=== PATIENT | female | born 1970 | race Caucasian/White ===

== ENCOUNTER 2016-09-03 17:10 | Observation (INO) | payer OTHER, MEDICAID ==
[2016-09-03] VITALS (9 sets, daily range): BP systolic 98–145; BP diastolic 51–86; PULSE 60–78; RESP 16–20; TEMP 97.7–98.1; O2SAT 98–100
[~2016-09-03] VITALS: Ht 157.5 cm; Wt 99.8 kg
[2016-09-03 17:35] LABS: BLOOD, URINE LARGE (NEG); GLUCOSE,URINE NEG (NEG); KETONE, URINE NEG (NEG); NITRITE,URINE NEG (NEG); PH, URINE 6.5 (5.0-8.5)
[2016-09-03 17:42] LABS: METHOD OF COLLECTION CLEAN CATCH; URINE COLOR YELLOW (YELLW/STRAW)
[2016-09-03 17:43] LABS: SQUAMOUS EPITHELIAL CELL URINE > 8 /hpf (0-5); WBC, URINE INNUM /hpf (0-5)
[2016-09-03 17:44] LABS: BACTERIA, URINE MOD /hpf; COMMENT (UR) CULTURE INDICATED; CULTURE IF INDICATED CULTURE INDICATED
[2016-09-03] MEDS ORDERED: SODIUM CHLOR 0.9% 1000 ML INJ 1,000 ML IV SCH ×2 (17:54→23:00)
[2016-09-03] MEDS ORDERED: KETOROLAC TROMETHAMINE 30 MG/ML (IVP) VIAL IVP ONE (18:00)
[2016-09-03] MEDS ORDERED: SODIUM CHLORIDE 0.9% FLUSH 5 ML FLUSH IVF PRN ×2 (18:00→23:00)
[2016-09-03 18:11] LABS: AUTOMATED NEUTROPHIL # 2.6 TH/MM3 (1.8-7.7); BASOPHIL % 0.6 % (0.0-2.0); EOSINOPHIL # 0.2 TH/MM3 (0-0.4); EOSINOPHIL % 3.1 % (0.0-4.0); HEMO FLAGS DIFF FINAL; LYMPH % 42.8 % (9.0-44.0); LYMPHOCYTE # 2.5 TH/MM3 (1.0-4.8); MEAN CELL VOLUME 79.5 FL (80.0-100.0); MEAN CORPUSCULAR HEMOGLOBIN 26.3 PG (27.0-34.0); MEAN CORPUSCULAR HGB CONC 33.1 % (32.0-36.0); MONO % 9.6 % (0.0-8.0); NEUT % 43.9 % (16.0-70.0); PLATELET COUNT 305 TH/MM3 (150-450); RED CELL DISTRIBUTION WIDTH 15.6 % (11.6-17.2); WHITE BLOOD COUNT 5.9 TH/MM3 (4.0-11.0)
[2016-09-03 18:21] LABS: CHLORIDE 109 MEQ/L (98-107); POTASSIUM 3.7 MEQ/L (3.5-5.1); SODIUM (NA) 142 MEQ/L (136-145)
[2016-09-03 18:26] LABS: ANION GAP 7 MEQ/L (5-15); BICARBONATE 25.9 MEQ/L (21.0-32.0); BLOOD UREA NITROGEN 12 MG/DL (7-18)
[2016-09-03 18:28] LABS: ALT (GPT) 20 U/L (10-53); AST (GOT) 19 U/L (15-37); GLOMERULAR FILTRATION RATE 60 ML/MIN (>89)
[2016-09-03 18:30] LABS: INDIRECT BILIRUBIN 0.1 MG/DL (0.0-0.8); TOTAL BILIRUBIN ADULT 0.2 MG/DL (0.2-1.0)
[2016-09-03 18:31] LABS: ALKALINE PHOSPHATASE 78 U/L (45-117)
--- NOTE | 2016-09-03 19:17 | RADHPO ---
EXAM DATE/TIME: 09/03/2016 18:31 [facility] COMPARISON: No previous studies available for comparison. INDICATIONS : Right flank pain. MEDICAL HISTORY : Kidney stones. SURGICAL HISTORY : None. ENCOUNTER: Initial ACUITY: 3 days PAIN SCORE: 8/10 LOCATION: Bilateral flank MEASUREMENTS: RIGHT KIDNEY: 14.0 x 5.7 x 8.6 cm LEFT KIDNEY: 11.4 x 5.4 x 6.2 cm FINDINGS: There are prior renal stones 15 x 12 mm upper pole, 11 x 11 mm lower pole and 10 x 12 mm mid zone. Th ere is right hydronephrosis and apparent dilatation of the proximal right ureter. An 8mm calculus can be seen in the right flank region which may be in the mid to upper right ureter. A 4 mm nonobstructing stone is suspected of the left mid zone. No hydronephrosis of the left kidney. Urinary bladder is nondistended and grossly unremarkable. CONCLUSION: Bilateral renal stones as above and probably an 8mm obstructing stone of the right ureter. Javon Mccord MD on September 03, 2016 at 19:12 Board Certified Radiologist. This report was verified electronically.
[2016-09-03] MEDS ORDERED: cefTRIAXone INJ 1,000 MG in SODIUM CHLORIDE 0.9% INJ 100 ML IV ONE (19:30)
[2016-09-03] MEDS ORDERED: MORPHINE SULFATE 4 MG/ML INJ IV PUSH ONE ×2 (19:30→23:00)
--- NOTE | 2016-09-03 19:43 | PD ---
HPI Chief Complaint: Abdominal Pain Time Seen by Provider: 17:42 Travel History International Travel<30 days: No Contact w/Intl Traveler<30days: No Traveled to known affect area: No History of Present Illness HPI Patient is a 46-year-old female who comes in complaining of right lower quadrant pain wrapping around to her back, that started a few days ago. She says she has history of kidney stones, and was told she had have surgery to remove them. She is worried now that one of them is obstructing her kidneys. She says she's had some nausea, no vomiting. She denies any fever or chills. She denies any dysuria. PFS Past Medical History Kidney Stones: Yes ?: Not LMP: 08/20/16 Social History Alcohol Use: Yes Tobacco Use: No Substance Use: No Allergies-Medications (Allergen,Severity, Reaction): Coded Allergies: Bactrim (Verified Allergy, Intermediate, blisters on lips, 09/03/16) Reported Meds & Prescriptions Reported Meds & Active Scripts Active No Active Prescriptions or Reported Medications Review of Systems Except as stated in HPI: all other systems reviewed are Neg General / Constitutional: No: Fever, Chills HENT: No: Headaches, Lightheadedness Cardiovascular: No: Chest Pain or Discomfort Respiratory: No: Shortness of Breath Gastrointestinal: Positive: Nausea, Abdominal Pain, No: Vomiting Genitourinary: Positive: Flank Pain, No: Dysuria Skin: No Rash, No Change in Pigmentation Neurologic: No: Weakness, Dizziness Physical Exam Narrative GENERAL: Awake and alert in mild distress due to pain. SKIN: Warm and dry. HEAD: Atraumatic. Normocephalic. EYES: Pupils equal and round. No scleral icterus. ENT: Mucous membranes pink and moist. NECK: Trachea midline. No JVD. CARDIOVASCULAR: Regular rate and rhythm. No murmur appreciated. RESPIRATORY: No accessory muscle use. Clear to auscultation. Breath sounds equal bilaterally. GASTROINTESTINAL: Abdomen soft, nondistended. Tender to palpation along right side of the abdomen. Voluntary guarding, no rebound. Right CVA tenderness. MUSCULOSKELETAL: No obvious deformities. No clubbing. No cyanosis. No edema. NEUROLOGICAL: Awake and alert. No obvious cranial nerve deficits. Motor grossly within normal limits. Normal speech. PSYCHIATRIC: Appropriate mood and affect; insight and judgment normal. Data Data Last Documented VS Vital Signs Date Time Temp Pulse Resp B/P Pulse Ox O2 Delivery O2 Flow Rate FiO2 09/03/16 23:00 97.7 68 18 145/69 100 Room Air Orders Urinalysis - C+S If Indicated (09/03/16 17:25) Urine Culture (09/03/16 17:25) Basic Metabolic Panel (Bmp) (09/03/16 17:54) Complete Blood Count With Diff (09/03/16 17:54) Lipase (09/03/16 17:54) Lactic Acid (09/03/16 17:54) Iv Access Insert/Monitor (09/03/16 17:54) Ecg Monitoring (09/03/16 17:54) Oximetry (09/03/16 17:54) Sodium Chlor 0.9% 1000 Ml Inj (Ns 1000 M (09/03/16 17:54) Sodium Chloride 0.9% Flush (Ns Flush) (09/03/16 18:00) Ketorolac Inj (Toradol Inj) (09/03/16 18:00) Ed Urine Pregnancytest Poc (09/03/16 17:54) Hepatic Functional Panel (09/03/16 17:54) Us Kidney/Renal/Bladder (09/03/16 ) Morphine Inj (Morphine Inj) (09/03/16 19:30) Ceftriaxone Inj (Rocephin Inj) (09/03/16 19:30) Ct Abd/Pel W/O Iv Contrast (09/03/16 ) Admit Order (Ed Use Only) (09/03/16 ) Morphine Inj (Morphine Inj) (09/03/16 23:00) Vital Signs (Adult) Q4H (09/03/16 22:57) Activity Oob Ad Bella (09/03/16 22:57) ^ Saline Lock (09/03/16 22:57) ^ Notify Dr: Other (09/03/16 22:57) Ondansetron Inj (Zofran Inj) (09/03/16 23:00) Sodium Chloride 0.9% Flush (Ns Flush) (09/04/16 09:00) Sodium Chloride 0.9% Flush (Ns Flush) (09/03/16 23:00) Morphine Inj (Morphine Inj) (1/5/17 23:00) Sodium Chlor 0.9% 1000 Ml Inj (Ns 1000 M (09/03/16 23:00) Labs Laboratory Tests Test 09/03/16 09/03/16 17:25 18:00 Urine Collection Type CLEAN CATCH Urine Color YELLOW Urine Turbidity MOD Urine pH 6.5 Urine Specific [place] 1.018 Urine Protein 30 mg/dL Urine Glucose (UA) NEG mg/dL Urine Ketones NEG mg/dL Urine Occult Blood LARGE Urine Nitrite NEG Urine Bilirubin NEG Urine Leukocyte Esterase LARGE Urine RBC 50-99 /hpf Urine WBC INNUM /hpf Urine Squamous Epithelial > 8 /hpf Cells Urine Bacteria MOD /hpf Microscopic Urinalysis Comment CULTURE INDICATED Urine Collection Time 17:25 White Blood Count 5.9 TH/MM3 Red Blood Count 3.90 MIL/MM3 Hemoglobin 10.3 GM/DL Hematocrit 31.0 % Mean Corpuscular Volume 79.5 FL Mean Corpuscular Hemoglobin 26.3 PG Mean Corpuscular Hemoglobin 33.1 % Concent Red Cell Distribution Width 15.6 % Platelet Count 305 TH/MM3 Mean Platelet Volume 7.8 FL Neutrophils (%) (Auto) 43.9 % Lymphocytes (%) (Auto) 42.8 % Monocytes (%) (Auto) 9.6 % Eosinophils (%) (Auto) 3.1 % Basophils (%) (Auto) 0.6 % Neutrophils # (Auto) 2.6 TH/MM3 Lymphocytes # (Auto) 2.5 TH/MM3 Monocytes # (Auto) 0.6 TH/MM3 Eosinophils # (Auto) 0.2 TH/MM3 Basophils # (Auto) 0.0 TH/MM3 CBC Comment DIFF FINAL Differential Comment Sodium Level 142 MEQ/L Potassium Level 3.7 MEQ/L Chloride Level 109 MEQ/L Carbon Dioxide Level 25.9 MEQ/L Anion Gap 7 MEQ/L Blood Urea Nitrogen 12 MG/DL Creatinine 1.00 MG/DL Estimat Glomerular Filtration 60 ML/MIN Rate Random Glucose 85 MG/DL Lactic Acid Level 0.7 mmol/L Calcium Level 8.5 MG/DL Total Bilirubin 0.2 MG/DL Direct Bilirubin LESS THAN 0.1 MG/DL Indirect Bilirubin 0.1 MG/DL Aspartate Amino Transf 19 U/L (AST/SGOT) Alanine Aminotransferase 20 U/L (ALT/SGPT) Alkaline Phosphatase 78 U/L Total Protein 8.1 GM/DL Albumin 3.1 GM/DL Lipase 98 U/L [facility] Medical Decision Making Medical Screen Exam Complete: Yes Emergency Medical Condition: Yes Differential Diagnosis Pyelonephritis versus UTI versus renal stone Narrative Course Patient is a 46-year-old female who comes in complaining of abdominal pain and flank pain. Exam shows right-sided abdominal pain with right flank pain. IV established, labs sent. Urinalysis is positive for infection. Ultrasound shows an 8 mm obstructing stone with hydronephrosis. Patient given IV fluids, Rocephin, Toradol, morphine. I spoke with Dr. Marie of urology who suggests transfer to the [facility] for CT scan and possible intervention tomorrow. I believe the patient would benefit from admission due to obstructive uropathy and infected urine. Based on ultrasound results, I spoke with Dr. Wood who is refusing to admit this patient at this time. He says this is a urologic issue and that urology should admit. Dr. Marie states he needs a CT scan to form a plan for this patient. CT shows obstructive uropathy with severe hydronephrosis. On CT, it appears a blood clot is present in the ureter and there is no definitive stone seen in the ureter. I discussed these results with Dr. Marie who says the patient will require nephrostomy tube and this should be done by IR. I re-paged the hospitalist for [facility] for admission. Dr. Lane has taken over at this time and has accepted the patient for admission. The patient will be admitted at the [facility] for further interventions. Patient given additional does of morphine for continued pain. Diagnosis Primary Impression: Obstructive uropathy Additional Impression: UTI (urinary tract infection) Qualified Code: N30.00 - Acute cystitis without hematuria Admitting Information Admitting Physician Requests: Admit Scripts No Active Prescriptions or Reported Meds Condition: Elma Ellis MD Sep 03, 2016 19:43 Diagnosis Primary Impression: Obstructive uropathy Additional Impression: UTI (urinary tract infection) Qualified Code: N30.00 - Acute cystitis without hematuria Admitting Information Admitting Physician Requests: Admit Scripts No Active Prescriptions or Reported Meds Condition: Elma Ellis MD Sep 03, 2016 19:43
--- NOTE | 2016-09-03 22:41 | RADRPT ---
EXAM DATE/TIME: 09/03/2016 22:22 [facility] COMPARISON: US KIDNEY/RENAL/BLADDER, September 03, 2016, 18:31. INDICATIONS : RLQ abdominal pain for 3 days. ORAL CONTRAST: No oral contrast ingested. RADIATION DOSE: 14.17 CTDIvol (mGy) MEDICAL HISTORY : Renal calculi. SURGICAL HISTORY : None. ENCOUNTER: Initial ACUITY: 3 days PAIN SCALE: 6/10 LOCATION: Right lower quadrant Abdomen/pelvis TECHNIQUE: Volumetric scanning of the abdomen and pelvis was performed. Using automated exposure control and ad justment of the mA and/or kV according to patient size, radiation dose was kept as low as reasonably achievable to obtain optimal diagnostic quality images. FINDINGS: LOWER LUNGS: The visualized lower lungs are clear. LIVER: Homogeneous density without lesion. There is no dilation of the biliary tree. No calcified gallston es. SPLEEN: Normal size without lesion. PANCREAS: Within normal limits. KIDNEYS: There is a large staghorn calculus of the right kidney with moderate to severe hydronephrosis. I don' t see a ureteral calculus but there is high attenuation material in a distended renal pelvis and prox imal ureter, presumably clot/blood. There is a 3 mm nonobstructing stone of the left mid zone and a c ouple 1 mm nonobstructing stones of the left lower pole. ADRENAL GLANDS: Within normal limits. VASCULAR: There is no aortic aneurysm. BOWEL/MESENTERY: The stomach, small bowel, and colon demonstrate no acute abnormality. There is no free intraperitone al air or fluid. The appendix is well-visualized, normal. ABDOMINAL WALL: Within normal limits. RETROPERITONEUM: There is no lymphadenopathy. BLADDER: No wall thickening or mass. REPRODUCTIVE: Within normal limits. INGUINAL: There is no lymphadenopathy or hernia. MUSCULOSKELETAL: No acute bony abnormality demonstrated. CONCLUSION: 1. There is a large staghorn calculus of the right kidney. There is evidence of right obstructive uro deysi and I believe is related to blood/clot or other debris within the renal pelvis and proximal ure ter. No well-defined right ureteral stone seen. 2. Several tiny nonobstructing stones of the left kidney. Javon Mccord MD on September 03, 2016 at 22:34 Board Certified Radiologist. This report was verified electronically.
[2016-09-03] MEDS ORDERED: MORPHINE SULFATE 4 MG/ML INJ IV PUSH PRN (23:00)
[2016-09-04] VITALS (11 sets, daily range): BP systolic 109–149; BP diastolic 55–93; PULSE 62–102; RESP 16–20; TEMP 97.8–98.3; O2SAT 96–100
[2016-09-04] MEDS: ONDANSETRON HCL 4 MG/2 ML VIAL IV PRN ×3 (02:09→14:45)
[2016-09-04 07:12] LABS: AUTOMATED NEUTROPHIL # 2.8 TH/MM3 (1.8-7.7); BASOPHIL % 0.9 % (0.0-2.0); EOSINOPHIL # 0.2 TH/MM3 (0-0.4); EOSINOPHIL % 3.3 % (0.0-4.0); HEMATOCRIT 29.2 % (35.0-46.0); HEMO FLAGS DIFF FINAL; LYMPH % 36.8 % (9.0-44.0); LYMPHOCYTE # 1.9 TH/MM3 (1.0-4.8); MEAN CELL VOLUME 81.1 FL (80.0-100.0); MEAN CORPUSCULAR HEMOGLOBIN 26.4 PG (27.0-34.0); MEAN CORPUSCULAR HGB CONC 32.6 % (32.0-36.0); MONO % 7.8 % (0.0-8.0); NEUT % 51.2 % (16.0-70.0); PLATELET COUNT 278 TH/MM3 (150-450); RED CELL DISTRIBUTION WIDTH 15.2 % (11.6-17.2); WHITE BLOOD COUNT 5.3 TH/MM3 (4.0-11.0)
--- NOTE | 2016-09-04 07:24 | MH ---
cc: JOLEEN TABOR M.D. DATE OF ADMISSION: 09/03/2016 ADMISSION DIAGNOSIS 1. Large staghorn calculus, right kidney. 2. Prominent right obstructive uropathy. 3. Non-obstructing stones in the left kidney. PERTINENT HISTORY This is a 46-year-old black female who came to the emergency room with right flank and pain radiating around into the right lower quadrant for the last several days. The pain can be quite severe at times. She recently has been told she had kidney stones and would have to have surgery to remove them. She has had no fever, chills, hematuria or dysuria, but has been urinating more frequently. She has had nausea. She came to the emergency room at [place], initially had an ultrasound that showed an 8 mm obstructing stone with hydronephrosis of the right ureter. Also was noted to have bilateral renal stones. There was a right hydronephrosis and apparent dilatation of the proximal right ureter. The 8 mm calculus was thought to be in the mid to upper right ureter. The ER physician called the urologist, Dr. Marie, who recommended the patient be admitted to the medicine service and transferred to [facility] where he was going to plan on doing surgery, but he recommend getting a CT scan of the abdomen. Because the CT scanner was down in [place] she was sent for a CAT scan at [facility]. The CAT scan came back showing findings as mentioned with a large staghorn calculus in the right kidney, evidence of moderate to severe hydronephrosis. On the right side there was debris within the renal pelvis and proximal ureter that was thought to be obstructing the kidney. No well-defined right ureteral stone was seen there. There were several tiny non-obstructing stones in the left kidney. Because of these findings the urologist was called back by the ER physician and he recommended the patient be admitted for interventional radiology to place a nephrostomy tube. The patient is being admitted to be transferred to [facility] to arrange for interventional radiology to place a nephrostomy tube. Her pain has been controlled by morphine and she seems comfortable at this time. PAST MEDICAL HISTORY Medical history has been negative other than the stone disease. She has had no heart disease, hypertension or diabetes. No liver disease. No ulcer disease. No colon disease. No thyroid problems. No lung disease. No stroke or seizure. PAST SURGICAL HISTORY She has had one . ALLERGIES BACTRIM. MEDICATIONS None. FAMILY HISTORY Her mother at 48 of a possible heart attack. She also was a diabetic. Father in his 40s of a heart attack. SOCIAL HISTORY She is , never smoked, rarely uses alcohol. 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 REVIEW OF SYSTEMS GENERAL: No fever, chills or sweats. HEENT: No runny nose, sore throat, headache. CARDIOVASCULAR: No chest pain, orthopnea, PND. PULMONARY: No cough, shortness of breath. GI: She has had the right flank and lower abdominal pain and nausea, but no vomiting, no diarrhea. : As mentioned. No hematuria. SKIN: Without rash. NEUROLOGIC: No focal weakness, sensory loss or confusion. MUSCULOSKELETAL: Without complaints. PHYSICAL EXAMINATION GENERAL: An obese black female in no acute distress. VITAL SIGNS: Her BP is 136/55, respirations 16, pulse 65, O2 sat 100% on room air. HEENT: TMs clear. Nose negative. Mouth without inflammation or lesion. NECK: Without JVD. No bruit. HEART: Regular rate and rhythm. No murmurs. LUNGS: Clear. ABDOMEN: Soft. There is just some minimal tenderness in the right lateral lower abdomen and some mild to moderate right CVA tenderness over the right kidney on the posterior aspect. No masses. EXTREMITIES: No edema. Pulses 2+. SKIN: Negative. NEUROLOGIC: Oriented x3. Cranial nerves, motor and sensory intact. LABORATORY DATA Urinalysis showed large amount of leukocyte esterase. There were innumerable wbc's. Urine rbc's were 50-99. Moderate urine bacteria was noted. White count was 5.9, hemoglobin 10.3, hematocrit 31, MCV 79.5. IMAGING STUDIES As previously mentioned. ASSESSMENT 1. Obstructive uropathy on the right side with a moderate to severe hydronephrosis and possible proximal ureter stone versus other debris. 2. Bilateral renal stones. 3. Possible UTI. 4. Mild microcytic anemia. PLAN 1. She has been admitted with the intention to transfer her from [place] to [facility] when a bed is available. 2. A consult has been placed to interventional radiology for nephrostomy tube. Will have urology see her since she will need outpatient follow-up as well. 3. Will maintain her on Rocephin one gram q.24h. IV. 4. She has been on morphine for pain control. MD GRIFFIN Au/MISTY /6:44 AM /7:02 AM
[2016-09-04] MEDS: cefTRIAXone INJ 1,000 MG in SODIUM CHLORIDE 0.9% INJ 100 ML IV SCH (07:36)
[2016-09-04] MEDS: SODIUM CHLORIDE 0.9% FLUSH 5 ML FLUSH IVF SCH ×2 (08:55→20:16)
[2016-09-04 09:38] LABS: APTT (PATIENT) 26.6 SEC (24.3-30.1)
[2016-09-04] MEDS ORDERED: LEVOFLOXACIN 500 MG PREMIX 100 ML - nephrostomy tube insertion or exchange IV SCH (10:45)
[2016-09-04] MEDS: SODIUM CHLORIDE 0.9% 1000 ML IV SCH (10:45)
[2016-09-04] MEDS ORDERED: MORPHINE SULFATE 10 MG/ML INJ ONE (11:07)
[2016-09-04] MEDS ORDERED: fentaNYL CITRATE 250 MCG/5 ML AMP ONE (11:49)
[2016-09-04] MEDS ORDERED: MIDAZOLAM HCL 5 MG/5 ML VIAL ONE (11:49)
--- NOTE | 2016-09-04 13:03 | PD.RAD ---
Post Procedure Progress Note Pre Procedure Diagnosis: (1) Renal stone (2) Obstructive uropathy (3) UTI (urinary tract infection) Post Procedure Diagnosis: (1) Renal stone (2) UTI (urinary tract infection) (3) Obstructive uropathy Procedure Date: Sep 04, 2016 Supervising Radiologist: Chalino Arreaga Estimated blood loss: 2cc Anesthesia: Local, Conscious Sedation Plan of Activity Patient to Unit: ROPU Patient Condition: Good Additional Comments: Patient has a staghorn calculus filling the right kidney with obstructed calyces posterior to the stone. posterior carlos calyx accessed and 5 cc of pus aspirated. 8 A[place]i nephrostomy tube placed. There is not enough room in the renal pelvis due to stone volume to place a larger tube. See PACS Report for procedural detail/treatment Chalino Arreaga MD Sep 04, 2016 13:03
[2016-09-04] MEDS ORDERED: IOHEXOL 350 MG/ML 10 ML VIAL (for RAD DIAG) IV ONE (13:15)
[2016-09-04] MEDS: ACETAMINOPHEN/HYDROcodone 325 MG/5 MG TAB PO PRN ×2 (15:23→21:25)
--- NOTE | 2016-09-04 16:31 | RADRPT ---
EXAM DATE/TIME: 09/04/2016 11:58 [facility] COMPARISON: PERCUTANEOUS ANTEGRADE PYELO,RT, September 04, 2016, 0:00. INDICATIONS : Patient presents with right kidney obstruction in need of nephrostomy tube placement. MEDICAL HISTORY : N/A SURGICAL HISTORY : ENCOUNTER: Initial ACUITY: 1 day PAIN SCORE: 0/10 LOCATION: N/A FLUORO TIME: 19.5 minutes SEDATION TIME: 30 minutes CONTRAST: 25 cc Omnipaque (iohexol) 350 MEDICATION(S): 1.) 5 mg midazolam (Versed) IV 2.) 250 mcg fentanyl (Sublimaze) IV DEVICE(S): 1.) 8 German 25CM Flexima catheter PROCEDURE : 1. Ultrasound-guided puncture of the kidney. 2. Antegrade percutaneous pyelogram. 3. Percutaneous nephrostomy placement. 4. Conscious sedation with continuous EKG and oximetry monitoring. The risks, benefits and alternatives to the procedure were explained and verbal and written consent w as obtained. The site was prepped in sterile fashion. Full sterile technique was used, including ca p, mask, sterile gloves and gown and a large sterile sheet. Hand hygiene and 2% chlorhexidine and/or betadine/alcohol prep was utilized per protocol for cutaneous antisepsis. The skin and subcutaneous tissues were infiltrated with local anesthetic solution. The stone within the right kidney was easily identified with fluoroscopic imaging. A 25 gauge needle was advanced to the skin down to the stone. A small amount of contrast and air was instilled into the collecting system. A posterior lower pole calyx was selected. A 22 gauge needle was advanced through the skin into the calyx. A 0.018 wire was coiled within a dilated calyx. A 3/4 dilator was advanced over the wire. The inner stylette of the dilator was pulled. Approximately 5 cc of pus was aspirated from the collecting system. A 0.035 angle Glidewire was advanced through the dilator and eventually manipulated into the proximal left ureter. This was quite difficult due to the overall stone volume. A 4 German inguinal glide catheter was advanced over the wire. A Flexon are wire was advanced through the glide catheter and down to the bladder. An 8 German nephrostomy drain was eventually manipulated over the wire and placed within the ureteropelvic junction. There was difficulty forming the cathete r do to the limited space available secondary to the stone disease. Conscious sedation was performed with the prescribed dosages and duration as above. The patient tole rated the procedure well and there were no complications. EKG and oximetry remained stable throughou t the procedure. The patient was sent to post anesthesia recovery in stable condition. CONCLUSION: 1. Uncomplicated right nephrostomy tube placement. Please see above discussion. Chalino Arreaga MD on September 04, 2016 at 16:10 Board Certified Radiologist. This report was verified electronically.
--- NOTE | 2016-09-04 19:55 | PD.CONS ---
HPI Service Urology Consult Requested By Reason for Consult Nephrolithiasis Primary Care Physician No Primary Care Physician Diagnosis: History of Present Illness 46yo female with history of nephrolithiasis found to have a large right staghorn calculus. Patient presented to the [facility] ED with right flank pain. CT scan was not availabel and thus an U/S identified multiple renal stones. She was then transferred to [facility] with CT scan identifiying a large right staghorn calculus with no stones noted in the ureter. She does have evidence of hydronephrosis on the right with likely infected system. She underwent right nephrostomy tube placement to relieve the infection and obstruction. She currently reports doing well, no fevers, no pain. Review of Systems ROS Limitations: Clinical Condition Constitutional: DENIES: Fever Eyes: DENIES: Vision loss Ears, nose, mouth, throat: DENIES: Hearing loss Respiratory: DENIES: Cough Cardiovascular: DENIES: Chest pain Gastrointestinal: DENIES: Abdominal pain, Nausea, Vomiting Genitourinary: DENIES: Hematuria Musculoskeletal: COMPLAINS OF: Back pain Integumentary: DENIES: Rash Hematologic/lymphatic: DENIES: Bruising Psychiatric: DENIES: Anxiety Past Family Social History Past Medical History Nephrolithiasis Past Surgical History No known surgeries Reported Medications Current Medications Medications (Trade) Dose Ordered Sig/Pearl Route Start Time Stop Time Status Last Admin (Zofran Inj) 4 mg Q6H PRN IV 09/03/16 23:00 09/04/16 14:45 (NS Flush) 2 ml BID IVF 09/04/16 09:00 IV Flush 2 ml 2 ml UNSCH PRN IVF 09/03/16 23:00 Ceftriaxone Sodium 1000 mg/ Sodium Chloride 100 ml @ 200 mls/hr Q24H IV 09/04/16 06:30 09/04/16 07:36 (NS 1000 ml Inj) 1,000 ml @ 30 mls/hr Q24H IV 09/04/16 10:45 09/07/16 10:44 09/04/16 10:45 ([place] 5-325 Mg) 1 tab Q6H PRN PO 09/04/16 15:00 09/04/16 15:23 (Pneumovax-23 Inj) 25 mcg ONCE ONCE IM 09/05/16 10:00 09/05/16 10:01 (Flu (Quadrivalent) Vaccine Inj) 0.5 ml ONCE ONCE IM 09/05/16 10:00 09/05/16 10:01 Allergies: Coded Allergies: Bactrim (Verified Allergy, Intermediate, blisters on lips, 09/03/16) Active Ordered Medications Reported Meds & Active Scripts Active No Active Prescriptions or Reported Medications Family History Family history reviewed and noncontributory to present illness Social History No tobacco use Occasional ETOH Physical Exam Vital Signs Vital Signs Date Time Temp Pulse Resp B/P Pulse Ox O2 Delivery O2 Flow Rate FiO2 09/04/16 16:26 18 09/04/16 16:00 97.8 102 17 148/90 96 09/04/16 13:50 85 18 109/79 99 09/04/16 13:20 85 18 109/79 99 09/04/16 10:21 97.8 70 20 147/82 100 09/04/16 09:30 66 16 113/55 97 Room Air 09/04/16 08:30 63 16 121/66 96 Room Air 09/04/16 07:40 16 98 Room Air 09/04/16 07:40 16 09/04/16 07:40 98.3 62 16 133/67 98 Room Air 09/04/16 07:36 16 09/04/16 06:23 64 18 126/65 99 Room Air 09/04/16 02:20 65 16 136/55 100 Room Air 09/04/16 02:20 16 09/04/16 01:20 68 16 145/69 100 Room Air 09/03/16 23:50 18 09/03/16 23:39 18 09/03/16 23:00 97.7 68 18 145/69 100 Room Air 09/03/16 21:45 72 18 98/51 98 Room Air 09/03/16 21:10 74 18 117/56 100 Room Air 09/03/16 20:20 78 18 131/71 100 Room Air 09/03/16 19:50 76 18 140/74 98 Room Air 09/03/16 19:50 16 Physical Exam GENERAL: This is a well-nourished, well-developed patient, in no apparent distress. SKIN: No rashes, ecchymoses or lesions. Cool and dry. HEAD: Atraumatic. Normocephalic. EYES: Extraocular motions intact. ENT: Nose without bleeding, purulent drainage. Airway patent. NECK: Trachea midline. CARDIOVASCULAR: Extremities well perfused RESPIRATORY: Nonlabored, equal chest rise GASTROINTESTINAL: Abdomen nondistended. : Right nephrostomy tube in place draining light red urine. MUSCULOSKELETAL: Extremities without clubbing, cyanosis, or edema. NEUROLOGICAL: Awake and alert. Motor and sensory grossly within normal limits. Normal speech. Laboratory Laboratory Tests Test 09/04/16 09/04/16 07:04 09:15 White Blood Count 5.3 Red Blood Count 3.60 Hemoglobin 9.5 Hematocrit 29.2 Mean Corpuscular Volume 81.1 Mean Corpuscular Hemoglobin 26.4 Mean Corpuscular Hemoglobin 32.6 Concent Red Cell Distribution Width 15.2 Platelet Count 278 Mean Platelet Volume 7.3 Neutrophils (%) (Auto) 51.2 Lymphocytes (%) (Auto) 36.8 Monocytes (%) (Auto) 7.8 Eosinophils (%) (Auto) 3.3 Basophils (%) (Auto) 0.9 Neutrophils # (Auto) 2.8 Lymphocytes # (Auto) 1.9 Monocytes # (Auto) 0.4 Eosinophils # (Auto) 0.2 Basophils # (Auto) 0.0 CBC Comment DIFF FINAL Differential Comment Prothrombin Time 11.0 Prothromb Time International 1.0 Ratio Activated Partial 26.6 Thromboplast Time Date/Time Procedure Status Source Growth 09/03/16 17:25 Urine Culture - Preliminary Resulted Urine Clean Catch IMMATURE GROWTH - REINCUBATE Result Diagram: 09/04/16 0704 09/03/16 1800 Imaging Last 48 hours Impressions Nephrostomy 09/04/16 0000 Signed Impressions: Service Date/Time: Sunday, September 04, 2016 11:58 - CONCLUSION: 1. Uncomplicated right nephrostomy tube placement. Please see above discussion. Chalino Arreaga MD Renal Ultrasound 09/03/16 0000 Signed Impressions: Service Date/Time: August 18:31 - CONCLUSION: Bilateral renal stones as above and probably an 8mm obstructing stone of the right ureter. Javon Mccord MD Abdomen/Pelvis CT 09/03/16 0000 Signed Impressions: Service Date/Time: August 22:22 - CONCLUSION: 1. There is a large staghorn calculus of the right kidney. There is evidence of right obstructive uropathy and I believe is related to blood/clot or other debris within the renal pelvis and proximal ureter. No well-defined right ureteral stone seen. 2. Several tiny nonobstructing stones of the left kidney. Javon Mccord MD Assessment and Plan Problem List: (1) UTI (urinary tract infection) ICD Code: N39.0 Status: Acute (2) Obstructive uropathy ICD Code: N13.9 Status: Acute (3) Renal stone ICD Code: N20.0 Status: Acute Assessment and Plan -Right staghorn calculus, s/p right nephrostomy tube placement -Patient will need right PCNL to treat her large stone burden on the right -Patient to follow-up with Urology in clinic after discharge to plan Right PCNL in the future after resolution of infection -Please call with questions Problem Qualifiers (1) UTI (urinary tract infection): Qualified Code: N30.00 - Acute cystitis without hematuria Tony Marie MD Sep 04, 2016 19:54
[2016-09-05] VITALS: BP 123/79; PULSE 100; RESP 20; TEMP 99.7; O2SAT 100
[2016-09-05] MEDS: cefTRIAXone INJ 1,000 MG in SODIUM CHLORIDE 0.9% INJ 100 ML IV SCH (04:08)
[2016-09-05] MEDS: ACETAMINOPHEN/HYDROcodone 325 MG/5 MG TAB PO PRN ×4 (04:09→20:10)
[2016-09-05 08:00] VITALS: BP 122/66; PULSE 96; RESP 17; TEMP 98.7; O2SAT 96
[2016-09-05] MEDS: SODIUM CHLORIDE 0.9% FLUSH 5 ML FLUSH IVF SCH ×2 (08:51→20:26)
[2016-09-05] MEDS: SODIUM CHLORIDE 0.9% 1000 ML IV SCH (08:58)
[2016-09-05] MEDS ORDERED: INFLUENZA VIRUS VACCINE (QUADRIVALENT) 0.5 ML SYR IM ONE (10:00)
[2016-09-05] MEDS ORDERED: PNEUMOCOCCAL POLYVALENT INJ 25 MCG/0.5 ML SYR IM ONE (10:00)
[2016-09-05] MEDS ORDERED: SOD PHOSPHATE/SOD BIPHOSPHATE (ADULT) ENEMA 133ML PR PRN (11:30)
[2016-09-05] MEDS ORDERED: BISACODYL 10 MG SUPP PR PRN (11:30)
[2016-09-05 12:00] VITALS: BP 125/71; PULSE 103; RESP 18; TEMP 99.4; O2SAT 94
[2016-09-05] MEDS: DOCUSATE SODIUM 100 MG CAP PO SCH ×2 (12:17→20:10)
[2016-09-05] MEDS: MAGNESIUM HYDROXIDE SUSP 30 ML CUP PO PRN (12:17)
--- NOTE | 2016-09-05 15:46 | HHI.PR ---
Subjective Remarks No new complaints. Objective Vitals Vital Signs Date Time Temp Pulse Resp B/P Pulse Ox O2 Delivery O2 Flow Rate FiO2 09/05/16 12:00 99.4 103 18 125/71 94 09/05/16 08:00 98.7 96 17 122/66 96 09/05/16 00:00 99.7 100 20 123/79 100 09/04/16 20:00 98.2 100 20 149/93 96 09/04/16 16:26 18 09/04/16 16:00 97.8 102 17 148/90 96 09/04/16 09/04/16 09/05/16 15:00 23:00 07:00 Intake Total 630 ml 480 ml 240 ml Output Total 550 ml 1200 ml Balance 630 ml -70 ml -960 ml Intake Oral 480 ml 240 ml IV Total 630 ml 0 ml Output Urine Total 300 ml 1200 ml Drainage Total 250 ml Result Diagram: 09/04/16 0704 09/03/16 1800 Imaging Last Impressions Nephrostomy 09/04/16 0000 Signed Impressions: Service Date/Time: Sunday, September 04, 2016 11:58 - CONCLUSION: 1. Uncomplicated right nephrostomy tube placement. Please see above discussion. Chalino Arreaga MD Renal Ultrasound 09/03/16 0000 Signed Impressions: Service Date/Time: August 18:31 - CONCLUSION: Bilateral renal stones as above and probably an 8mm obstructing stone of the right ureter. Javon Mccord MD Abdomen/Pelvis CT 09/03/16 0000 Signed Impressions: Service Date/Time: August 22:22 - CONCLUSION: 1. There is a large staghorn calculus of the right kidney. There is evidence of right obstructive uropathy and I believe is related to blood/clot or other debris within the renal pelvis and proximal ureter. No well-defined right ureteral stone seen. 2. Several tiny nonobstructing stones of the left kidney. Javon Mccord MD A/P Problem List: (1) Obstructive uropathy Status: Acute Plan: - CT abd/pelvis (09/03/16) There is a large staghorn calculus of the right kidney. There is evidence of right obstructive uropathy and I believe is related to blood/clot or other debris within the renal pelvis and proximal ureter. No well-defined right ureteral stone seen. 2. Several tiny nonobstructing stones of the left kidney. - Pt underwent right percutaneous nephrostomy tube placement (09/04/16) by IR - concomitant UTI - appreciate input from Urology - will discuss case further with Urology 09/06 - Pt will require percutaneous nephrolithotomy once infection treated & will f/ u with Urology outpt - anticipate discharge to home in 1-2 days (2) Renal stone Status: Acute Plan: - see above (3) UTI (urinary tract infection) Status: Acute Plan: - urine cx (09/03/16) --> proteus with broad sensitivity - continue rocephin Problem Qualifiers (1) UTI (urinary tract infection): Qualified Code: N30.00 - Acute cystitis without hematuria Mario Jones DO Sep 05, 2016 15:46
[2016-09-05 16:00] VITALS: BP 136/81; PULSE 95; RESP 17; TEMP 98.4; O2SAT 97
[2016-09-05] MEDS ORDERED: ACETAMINOPHEN/HYDROcodone 325 MG/5 MG TAB PO PRN (19:00)
[2016-09-05 20:15] VITALS: BP 135/80; PULSE 79; RESP 16; TEMP 98.3; O2SAT 98
[2016-09-05 23:39] VITALS: BP 130/64; PULSE 90; RESP 18; TEMP 98.6; O2SAT 96
[2016-09-06] MEDS: ACETAMINOPHEN/HYDROcodone 325 MG/5 MG TAB PO PRN ×4 (00:40→13:48)
[2016-09-06] MEDS: cefTRIAXone INJ 1,000 MG in SODIUM CHLORIDE 0.9% INJ 100 ML IV SCH (04:59)
[2016-09-06 05:49] LABS: AUTOMATED NEUTROPHIL # 8.3 TH/MM3 (1.8-7.7); BASOPHIL % 0.2 % (0.0-2.0); EOSINOPHIL # 0.1 TH/MM3 (0-0.4); HEMATOCRIT 28.6 % (35.0-46.0); HEMO FLAGS DIFF FINAL; LYMPH % 11.4 % (9.0-44.0); LYMPHOCYTE # 1.2 TH/MM3 (1.0-4.8); MEAN CELL VOLUME 79.9 FL (80.0-100.0); MEAN CORPUSCULAR HEMOGLOBIN 25.8 PG (27.0-34.0); MEAN CORPUSCULAR HGB CONC 32.3 % (32.0-36.0); MONO % 6.9 % (0.0-8.0); NEUT % 80.5 % (16.0-70.0); PLATELET COUNT 269 TH/MM3 (150-450); RED BLOOD COUNT 3.57 MIL/MM3 (4.00-5.30); RED CELL DISTRIBUTION WIDTH 15.7 % (11.6-17.2); WHITE BLOOD COUNT 10.4 TH/MM3 (4.0-11.0)
[2016-09-06 06:21] LABS: BICARBONATE 24.8 MEQ/L (21.0-32.0)
[2016-09-06 08:00] VITALS: BP 116/60; PULSE 86; RESP 16; TEMP 98.6; O2SAT 100
[2016-09-06] MEDS: DOCUSATE SODIUM 100 MG CAP PO SCH (09:15)
[2016-09-06] MEDS: SODIUM CHLORIDE 0.9% FLUSH 5 ML FLUSH IVF SCH (09:16)
[2016-09-06] MEDS: SODIUM CHLORIDE 0.9% 1000 ML IV SCH (10:45)
[2016-09-06 12:00] VITALS: BP 136/76; PULSE 97; RESP 17; TEMP 96.5; O2SAT 100
[2016-09-06] MEDS: MAGNESIUM HYDROXIDE SUSP 30 ML CUP PO PRN (13:51)
[2016-09-06] MEDS ORDERED: HYDR-3516 PO (15:15)
[2016-09-06] MEDS ORDERED: LEVA500T PO (15:15)
--- NOTE | 2016-09-06 15:23 | HHI.PR ---
Subjective Remarks Pt's pain is controlled with norco. Pt is tolerating PO intake. Objective Vitals Vital Signs Date Time Temp Pulse Resp B/P Pulse Ox O2 Delivery O2 Flow Rate FiO2 09/06/16 12:00 96.5 97 17 136/76 100 09/06/16 08:00 98.6 86 16 116/60 100 09/05/16 23:39 98.6 90 18 130/64 96 09/05/16 20:15 98.3 79 16 135/80 98 09/05/16 16:00 98.4 95 17 136/81 97 09/05/16 09/05/16 09/06/16 15:00 23:00 07:00 Intake Total 1320 ml 760 ml 460 ml Output Total 350 ml 275 ml 830 ml Balance 970 ml 485 ml -370 ml Intake Oral 1320 ml 760 ml 360 ml IV Total 0 ml 100 ml Output Urine Total 100 ml 380 ml Drainage Total 250 ml 275 ml 450 ml # Voids 5 3 # Bowel Movements 0 Result Diagram: 09/06/16 0443 09/06/16 0443 Imaging Last Impressions Nephrostomy 09/04/16 0000 Signed Impressions: Service Date/Time: Sunday, September 04, 2016 11:58 - CONCLUSION: 1. Uncomplicated right nephrostomy tube placement. Please see above discussion. Chalino Arreaga MD Renal Ultrasound 09/03/16 0000 Signed Impressions: Service Date/Time: August 18:31 - CONCLUSION: Bilateral renal stones as above and probably an 8mm obstructing stone of the right ureter. Javon Mccord MD Abdomen/Pelvis CT 09/03/16 0000 Signed Impressions: Service Date/Time: August 22:22 - CONCLUSION: 1. There is a large staghorn calculus of the right kidney. There is evidence of right obstructive uropathy and I believe is related to blood/clot or other debris within the renal pelvis and proximal ureter. No well-defined right ureteral stone seen. 2. Several tiny nonobstructing stones of the left kidney. Javon Mccord MD Objective Remarks GENERAL: This is a well-nourished, well-developed patient, in no apparent distress. CARDIOVASCULAR: Regular rate and rhythm without murmurs, gallops, or rubs. RESPIRATORY: Clear to auscultation. Breath sounds equal bilaterally. No wheezes , rales, or rhonchi. GASTROINTESTINAL: Abdomen soft, non-tender, nondistended. Normal active bowel sounds MUSCULOSKELETAL: Extremities without clubbing, cyanosis, or edema. NEURO: Alert & Oriented x4 to person, place, time, situation. Moves all ext x4 : Urostomy tube draining adequate urine, blood tinged urine A/P Problem List: (1) Obstructive uropathy Status: Acute Plan: - CT abd/pelvis (09/03/16) There is a large staghorn calculus of the right kidney. There is evidence of right obstructive uropathy and I believe is related to blood/clot or other debris within the renal pelvis and proximal ureter. No well-defined right ureteral stone seen. 2. Several tiny nonobstructing stones of the left kidney. - Pt underwent right percutaneous nephrostomy tube placement (09/04/16) by IR - concomitant UTI - appreciate input from Urology, Dr. Marie - Case d/w covering Urologist, Dr. Gallo. He agrees with discharge to home today. - Pt will require percutaneous nephrolithotomy once infection treated & will f/ u with Urology outpt - discharge to home today after BM - norco prn - colace 100mg BID - levaquin x 5d - f/u with with Urology Dr. Marie in 2-3 days (2) Renal stone Status: Acute Plan: - see above (3) UTI (urinary tract infection) Status: Acute Plan: - urine cx (09/03/16) --> proteus with broad sensitivity - discharge on levaquin x 5d Problem Qualifiers (1) UTI (urinary tract infection): Qualified Code: N30.00 - Acute cystitis without hematuria Mario Jones DO Sep 06, 2016 15:23
[2016-09-06] MEDS ORDERED: COLA100C3 PO (15:24)
[2016-09-06 16:00] VITALS: BP 125/74; PULSE 82; RESP 16; TEMP 98.3; O2SAT 100
--- NOTE | 2016-10-07 22:13 | HHI.DS ---
Discharge Summary Admission Date Sep 03, 2016 at 23:04 Discharge Date: Oct 07, 2016 Admitting Diagnosis Obstructive uropathy (1) Obstructive uropathy Diagnosis: Principal (2) Renal stone Diagnosis: Principal (3) UTI (urinary tract infection) Diagnosis: [facility] Dr. Tony Marie, Urology Brief History This is a 46-year-old black female who came to the emergency room with right flank and pain radiating around into the right lower quadrant for the last several days. The pain can be quite severe at times. She recently has been told she had kidney stones and would have to have surgery to remove them. She has had no fever, chills, hematuria or dysuria, but has been urinating more frequently. She has had nausea. She came to the emergency room at [place], initially had an ultrasound that showed an 8 mm obstructing stone with hydronephrosis of the right ureter. Also was noted to have bilateral renal stones. There was a right hydronephrosis and apparent dilatation of the proximal right ureter. The 8 mm calculus was thought to be in the mid to upper right ureter. The ER physician called the urologist, Dr. Marie, who recommended the patient be admitted to the medicine service and transferred to [facility] where he was going to plan on doing surgery, but he recommend getting a CT scan of the abdomen. Because the CT scanner was down in [place] she was sent for a CAT scan at [place]. The CAT scan came back showing findings as mentioned with a large staghorn calculus in the right kidney, evidence of moderate to severe hydronephrosis. On the right side there was debris within the renal pelvis and proximal ureter that was thought to be obstructing the kidney. No well-defined right ureteral stone was seen there. There were several tiny non-obstructing stones in the left kidney. Because of these findings the urologist was called back by the ER physician and he recommended the patient be admitted for interventional radiology to place a nephrostomy tube. The patient is being admitted to be transferred to [facility] to arrange for interventional radiology to place a nephrostomy tube. Her pain has been controlled by morphine and she seems comfortable at this time. PE at Discharge GENERAL: This is a well-nourished, well-developed patient, in no apparent distress. CARDIOVASCULAR: Regular rate and rhythm without murmurs, gallops, or rubs. RESPIRATORY: Clear to auscultation. Breath sounds equal bilaterally. No wheezes , rales, or rhonchi. GASTROINTESTINAL: Abdomen soft, non-tender, nondistended. Normal active bowel sounds MUSCULOSKELETAL: Extremities without clubbing, cyanosis, or edema. NEURO: Alert & Oriented x4 to person, place, time, situation. Moves all ext x4 : Urostomy tube draining adequate urine, blood tinged urine Hospital Course (1) Obstructive uropathy Status: Acute Plan: - CT abd/pelvis (09/03/16) There is a large staghorn calculus of the right kidney. There is evidence of right obstructive uropathy and I believe is related to blood/clot or other debris within the renal pelvis and proximal ureter. No well-defined right ureteral stone seen. 2. Several tiny nonobstructing stones of the left kidney. - Pt underwent right percutaneous nephrostomy tube placement (09/04/16) by IR - concomitant UTI - appreciate input from Urology, Dr. Marie - Case d/w covering Urologist, Dr. Gallo. He agreed with discharge to home 09/06 - Pt will require percutaneous nephrolithotomy once infection treated & will f/ u with Urology outpt - norco prn - colace 100mg BID - levaquin x 5d - f/u with with Urology Dr. Marie in 2-3 days (2) Renal stone Status: Acute Plan: - see above (3) UTI (urinary tract infection) Status: Acute Plan: - urine cx (09/03/16) --> proteus with broad sensitivity - discharge on levaquin x 5d Pt Condition on Discharge: Stable Discharge Disposition: Discharge Home Discharge Instructions DIET: Follow Instructions for: As Tolerated, No Restrictions Activities you can perform: Regular-No Restrictions Follow up Referrals: Surgical - 1 Week with Interventional Radiology Urology - 2-3 Days with Tony Marie MD, Edward B DO Oct 07, 2016 22:13
== END 2016-09-06 18:23 | disposition home or self-care (01) ==
LOC: PHED 17:10 → INTOOBSV 23:04 → PHEDA 23:04 → PHEDH 09-04 03:04 → HRIP 09-04 10:16 → N07B 09-04 15:39
PROVIDERS: ADMIT Hospitalist; ATTEND Hospitalist
DX: N13.2 Hydronephrosis with renal and ureteral calculous obstruction (principal); N30.00 Acute cystitis without hematuria; B96.4 Proteus (mirabilis) (morganii) as the cause of diseases classified elsewhere; D50.9 Iron deficiency anemia, unspecified; Z23 Encounter for immunization
CPT/HCPCS: 50432; 74176; 76775; 80048; 80076; 81001; 83605; 83690; 83735; 84703; 85025; 85610; 85730; 87077; 87086; 87186; 90732; 96361; 96365; 96375; 99152; 99153; 99285; C1729; C1769; C1887; G0378; J0696; J1885; J2250; J2270; J2405; J3010; J7030; Q2038; Q9967; 90686

== ENCOUNTER 2016-09-30 06:53 | Inpatient (IN) | payer OTHER, MEDICAID ==
[~2016-09-30] VITALS: Ht 157.5 cm; Wt 97.5 kg
[2016-09-30 08:05] VITALS: BP 140/83; PULSE 83; RESP 20; TEMP 98.3; O2SAT 95
[2016-09-30] MEDS ORDERED: LEVOFLOXACIN 500 MG PREMIX 100 ML - nephrostomy tube insertion or exchange IV SCH (08:15)
[2016-09-30] MEDS ORDERED: SODIUM CHLORIDE 0.9% 1000 ML IV SCH (08:15)
[2016-09-30] MEDS ORDERED: ceFAZolin 2 GM PREMIX 50 ML IV SCH (08:45)
[2016-09-30] MEDS ORDERED: SODIUM CHLORID 0.9% 500 ML IV SCH ×2 (09:00)
[2016-09-30] MEDS ORDERED: LACTATED RINGER'S 1000 ML IV SCH ×2 (09:00)
[2016-09-30] MEDS ORDERED: METOPROLOL TARTRATE 25 MG TAB PO PRN ×2 (09:00)
[2016-09-30] MEDS ORDERED: INSULIN HUMAN REGULAR 1,000 UNITS/10 ML VIAL SQ PRN ×2 (09:00)
[2016-09-30] MEDS ORDERED: MIDAZOLAM HCL 5 MG/5 ML VIAL ONE (09:11)
[2016-09-30] MEDS ORDERED: fentaNYL CITRATE 250 MCG/5 ML AMP ONE ×2 (09:11→15:05)
[2016-09-30] MEDS ORDERED: MIDAZOLAM HCL 2 MG/2 ML VIAL ONE ×2 (09:56→13:49)
[2016-09-30 10:15] VITALS: BP 163/77; PULSE 83; RESP 18; TEMP 98.5; O2SAT 98
--- NOTE | 2016-09-30 10:15 | PD.RAD ---
Post Procedure Progress Note Pre Procedure Diagnosis: (1) Obstructive uropathy (2) Renal stone Post Procedure Diagnosis: (1) Obstructive uropathy (2) Renal stone Procedure Date: Sep 30, 2016 Supervising Radiologist: Mj Morales Proceduralist/Assist: Hien Coppola, RT(R)(), Natalya Victor RT(R)() Anesthesia: Local, Conscious Sedation Plan of Activity Patient to Unit: SDS Patient Condition: Good See PACS Report for procedural detail/treatment Drainage Procedure Procedure 1 Imaging Guidance: Fluoroscopy Side: Right Procedure Type: Nephrostomy, Ureteral Stent Procedure: Conversion Amharic: 8 Drainage: [place] drainage Fluid Description: Clear, Yellow Findings: Right nephrostomy converted to ureteral-nephrostomy. Mj Morales MD Sep 30, 2016 10:15
[2016-09-30 10:30] VITALS: BP 144/91; PULSE 78; RESP 16; O2SAT 95
[2016-09-30] MEDS ORDERED: IOHEXOL 350 MG/ML 50 ML BTL (for RAD DIAG) ONE (10:42)
[2016-09-30 11:00] VITALS: BP 152/80; PULSE 82; RESP 16; O2SAT 96
[2016-09-30] MEDS ORDERED: ONDANSETRON HCL 4 MG/2 ML VIAL ONE ×2 (11:07→15:05)
--- NOTE | 2016-09-30 11:32 | RADRPT ---
EXAM DATE/TIME: 09/30/2016 09:39 [facility] COMPARISON: No previous studies available for comparison. INDICATIONS : Patient is in need of conversion of existing right sided nephrostomy tube to right nephroureteral daxa nt. MEDICAL HISTORY : History of renal calculi. SURGICAL HISTORY : History of right nephrostomy tube, . ENCOUNTER: Subsequent ACUITY: 3 weeks PAIN SCORE: 0/10 FLUORO TIME: 4.6 minutes SEDATION TIME: 40 minutes CONTRAST: 10 cc Omnipaque (iohexol) 350 MEDICATION(S): 1.) 5.5 mg midazolam (Versed) IV 2.) 150 mcg fentanyl (Sublimaze) IV DEVICE(S): 1.) 8 Frisian 26cm nephroureteral stent PROCEDURE : 1. Ultrasound-guided puncture of the kidney. 2. Antegrade percutaneous pyelogram. 3. Percutaneous nephrostomy placement. 4. Conscious sedation with continuous EKG and oximetry monitoring. The risks, benefits and alternatives to the procedure were explained and verbal and written consent w as obtained. The site was prepped in sterile fashion. Full sterile technique was used, including ca p, mask, sterile gloves and gown and a large sterile sheet. Hand hygiene and 2% chlorhexidine and/or betadine/alcohol prep was utilized per protocol for cutaneous antisepsis. The skin and subcutaneous tissues were infiltrated with local anesthetic solution. A percutaneous antegrade pyelogram was performed through an existing nephrostomy tube. Mild dilatatio n is seen in the calyceal system. There is no tructive flow through the ureter into the bladder. The existing nephrostomy tube was removed over a guidewire. Guidewire and catheter were advanced into uri nary bladder. A nephroureteral tube was advanced over the guidewire and positioned from the urinary bladder to the renal pelvis. Conscious sedation was performed with the prescribed dosages and duration as above. The patient tole rated the procedure well and there were no complications. EKG and oximetry remained stable throughou t the procedure. The patient was sent to post anesthesia recovery in stable condition. CONCLUSION: Uncomplicated conversion of a nephrostomy tube into a nephroureteral tube. Mj Morales MD on September 30, 2016 at 11:26 Board Certified Radiologist. This report was verified electronically.
[2016-09-30 11:41] VITALS: BP 139/82; PULSE 66; RESP 20; TEMP 97.8; O2SAT 99
[2016-09-30] MEDS ORDERED: FAMOTIDINE 20 MG/2 ML VIAL ONE (12:48)
[2016-09-30] MEDS ORDERED: MORPHINE SULFATE 4 MG/ML INJ ONE ×2 (12:48→22:02)
[2016-09-30] MEDS ORDERED: ARTIFICIAL TEARS OPTH OINT 3.5 APPLIC/3.5 GM TUBO ONE (15:30)
[2016-09-30] MEDS ORDERED: IOHEXOL 300 MG/ML 50 ML BTL (for RAD DIAG) OTHER ONE (15:57)
[2016-09-30] MEDS ORDERED: DO NOT ADM ANY ANTICOAGULANT DRUGS XX PRN (17:27)
[2016-09-30] MEDS ORDERED: Post-op Orders (for Pharmacy) MISC XX ONE (17:30)
[2016-09-30] MEDS ORDERED: SODIUM CHLORIDE 0.9% FLUSH 5 ML FLUSH IVF PRN (17:30)
[2016-09-30] MEDS ORDERED: ONDANSETRON HCL 4 MG/2 ML VIAL IV PRN (17:30)
[2016-09-30] MEDS ORDERED: ACETAMINOPHEN/HYDROcodone 325 MG/5 MG TAB PO PRN ×2 (17:30)
--- NOTE | 2016-09-30 17:37 | RADRPT ---
EXAM DATE/TIME: 09/30/2016 15:59 [facility] COMPARISON: No previous studies available for comparison. INDICATIONS : Obstruction, renal calculi. Percutaneous nephro-lithotripsy. MEDICAL HISTORY : History of renal calculi. SURGICAL HISTORY : History of right nephrostomy tube, . ENCOUNTER: Subsequent ACUITY: 3 days PAIN SCORE: Non-responsive. LOCATION: Right kidney. FINDINGS: Double-J stent is in place with its proximal portion in the renal pelvis the distal stent in the blad richard. CONCLUSION: 1. Postsurgical changes as above. Socrates Yun MD on September 30, 2016 at 17:34 Board Certified Radiologist. This report was verified electronically.
[2016-09-30] MEDS ORDERED: *morphine SULFATE 8 MG/ML PERIprocedure ONLY ONE (17:48)
[2016-09-30] MEDS: OXYBUTYNIN CHLORIDE 5 MG TAB PO SCH (18:00)
[2016-09-30] MEDS: SODIUM CHLOR 0.9% 1000 ML INJ 1,000 ML IV SCH (18:40)
[2016-09-30] MEDS ORDERED: *ONDANSETRON 4 MG VIAL PERIprocedural Use ONLY ONE (18:42)
[2016-09-30] MEDS ORDERED: *PROMETHAZINE 25 MG/ML VIAL PERIprocedural use ONLY ONE (19:00)
[2016-10-01] MEDS: SODIUM CHLORIDE 0.9% FLUSH 5 ML FLUSH IVF SCH ×2 (01:12→09:04)
[2016-10-01] MEDS: MORPHINE SULFATE 4 MG/ML INJ IV PRN ×7 (01:12→19:25)
[2016-10-01 01:15] VITALS: BP 126/76; PULSE 99; RESP 18; TEMP 98.9; O2SAT 99
[2016-10-01 05:15] VITALS: BP 133/81; PULSE 93; RESP 18; TEMP 98.6; O2SAT 98
[2016-10-01] MEDS: SODIUM CHLOR 0.9% 1000 ML INJ 1,000 ML IV SCH ×3 (05:23→18:00)
[2016-10-01 07:50] LABS: HEMATOCRIT 29.9 % (35.0-46.0); MEAN CELL VOLUME 81.8 FL (80.0-100.0); MEAN CORPUSCULAR HEMOGLOBIN 25.6 PG (27.0-34.0); MEAN CORPUSCULAR HGB CONC 31.3 % (32.0-36.0); PLATELET COUNT 249 TH/MM3 (150-450); RED BLOOD COUNT 3.66 MIL/MM3 (4.00-5.30); RED CELL DISTRIBUTION WIDTH 16.3 % (11.6-17.2); REVIEW FLAG FINAL; WHITE BLOOD COUNT 8.7 TH/MM3 (4.0-11.0)
[2016-10-01 08:10] VITALS: BP 123/71; PULSE 89; RESP 16; TEMP 98.8; O2SAT 96
[2016-10-01 08:15] LABS: BICARBONATE 23.8 MEQ/L (21.0-32.0); POTASSIUM 3.5 MEQ/L (3.5-5.1)
[2016-10-01] MEDS: OXYBUTYNIN CHLORIDE 5 MG TAB PO SCH ×3 (09:03→16:42)
--- NOTE | 2016-10-01 10:33 | RADRPT ---
EXAM DATE/TIME: 10/01/2016 08:23 [facility] COMPARISON: CT ABDOMEN & PELVIS W/O CONTRAST, September 03, 2016, 22:22. INDICATIONS : Status post right percutaneous nephrolithotomy ORAL CONTRAST: No oral contrast ingested. RADIATION DOSE: 14.92 CTDIvol (mGy) MEDICAL HISTORY : renal disease SURGICAL HISTORY : section. ENCOUNTER: Initial ACUITY: 1 day PAIN SCALE: 0/10 LOCATION: Right abdomen TECHNIQUE: Volumetric scanning of the abdomen and pelvis was performed. Using automated exposure control and ad justment of the mA and/or kV according to patient size, radiation dose was kept as low as reasonably achievable to obtain optimal diagnostic quality images. FINDINGS: LOWER LUNGS: Bibasilar patchy densities. LIVER: Homogeneous density without lesion. There is no dilation of the biliary tree. No calcified gallston es. SPLEEN: Normal size without lesion. PANCREAS: Within normal limits. KIDNEYS: There has been placement of a percutaneous nephrostomy tube. Right kidney contains branching staghorn calculus. There is persistent dilatation of the renal pelvis and proximal ureter as seen on previous study although the hydronephrosis has improved on current study. Nephroureteral stent noted in good position. Left kidney unremarkable without renal calculi or hydronephrosis.. ADRENAL GLANDS: Within normal limits. VASCULAR: There is no aortic aneurysm. BOWEL/MESENTERY: The stomach, small bowel, and colon demonstrate no acute abnormality. There is no free intraperitone al air or fluid. ABDOMINAL WALL: Within normal limits. RETROPERITONEUM: There is no lymphadenopathy. BLADDER: No wall thickening or mass. REPRODUCTIVE: Within normal limits. Small amount pelvic free fluid. INGUINAL: There is no lymphadenopathy or hernia. MUSCULOSKELETAL: Within normal limits for patient age. CONCLUSION: 1. Placement of a right-sided percutaneous nephrostomy tube with slight improvement of right-sided hy dronephrosis. 2. Staghorn calculus on the right with dilatation of the right renal pelvis and right proximal ureter which does contain some high density material. 3. Right sided nephroureteral stent in position. 4. Small amount of pelvic free fluid. 5. Bibasilar patchy densities Jose Foy MD on October 01, 2016 at 10:28 Board Certified Radiologist. This report was verified electronically.
[2016-10-01 12:00] VITALS: BP 123/56; PULSE 88; RESP 16; TEMP 98.7; O2SAT 93
[2016-10-01] MEDS ORDERED: PROPOFOL 200 MG/20 ML AMP IV ONE (12:00)
[2016-10-01] MEDS ORDERED: ONDANSETRON HCL 4 MG/2 ML VIAL IV PUSH ONE (12:00)
[2016-10-01] MEDS ORDERED: LACTATED RINGER'S 1000 ML INJ 1,000 ML IV ONE (12:00)
[2016-10-01 16:00] VITALS: BP 135/64; PULSE 98; RESP 16; TEMP 99.2; O2SAT 96
--- NOTE | 2016-10-01 18:35 | HHI.PR ---
Subjective Remarks POD#1 Right PCNL Pain well controlled. No N/V. No fevers. voiding freely, medeiros removed this am Objective Vital Signs Vital Signs Date Time Temp Pulse Resp B/P Pulse Ox O2 Delivery O2 Flow Rate FiO2 10/01/16 08:10 98.8 89 16 123/71 96 10/01/16 05:15 98.6 93 18 133/81 98 10/01/16 01:15 98.9 99 18 126/76 99 10/01/16 00:00 99.5 82 14 122/71 96 Room Air 09/30/16 22:00 72 14 162/87 99 Nasal Cannula 2 09/30/16 21:00 99.0 77 13 150/85 97 Nasal Cannula 2 I/O 09/30/16 09/30/16 09/30/16 10/01/16 10/01/16 10/01/16 07:00 15:00 23:00 07:00 15:00 23:00 Intake Total 1000 ml 510 ml Output Total 155 ml 1400 ml 1075 ml Balance 845 ml -890 ml -1075 ml Intake IV Total 300 ml TPN/PPN 510 ml Other 700 ml Output Urine Total 125 ml 950 ml 575 ml Drainage Total 20 ml 450 ml 500 ml Estimated Blood Loss 10 ml # Voids 2 Result Diagram: 10/01/16 0730 10/01/16 0730 Imaging Last 24 hours Impressions Abdomen/Pelvis CT 10/01/16 0800 Signed Impressions: Service Date/Time: September 08:23 - CONCLUSION: 1. Placement of a right-sided percutaneous nephrostomy tube with slight improvement of right-sided hydronephrosis. 2. Staghorn calculus on the right with dilatation of the right renal pelvis and right proximal ureter which does contain some high density material. 3. Right sided nephroureteral stent in position. 4. Small amount of pelvic free fluid. 5. Bibasilar patchy densities Jose Foy MD Objective Remarks NAD, AAOx3 Resp NL right Flank nephrostomy tube in place, draining light pink urine Assessment and Plan Problem List: (1) Renal stone ICD Code: N20.0 Status: Acute Assessment and Plan -Pain well controlled -Regular diet -Ct scan with some stone burden remaining. difficult to reach with current access, however is amenable to future ureteroscopy or ESWL -Nephrostomy tube removed at bedside -Patient clear for discharge with pain medication and antibiotic for few days Tony Marie MD Oct 01, 2016 18:35
[2016-10-01] MEDS ORDERED: OXYB5TAB10 PO (18:44)
[2016-10-01] MEDS ORDERED: PERC5TAB12 PO (18:44)
[2016-10-01] MEDS ORDERED: CIPR-9 PO (18:44)
--- NOTE | 2016-10-01 18:47 | HHI.DS ---
Discharge Summary Admission Date Sep 30, 2016 at 17:28 Discharge Date: Oct 01, 2016 Admitting Diagnosis Nephrolithiasis Procedures Right PCNL CBC/BMP: 10/01/16 0730 10/01/16 0730 Significant Findings Laboratory Tests Test 10/01/16 07:30 Red Blood Count 3.66 MIL/MM3 (4.00-5.30) Hemoglobin 9.4 GM/DL (11.6-15.3) Hematocrit 29.9 % (35.0-46.0) Mean Corpuscular Hemoglobin 25.6 PG (27.0-34.0) Mean Corpuscular Hemoglobin 31.3 % Concent (32.0-36.0) Creatinine 1.12 MG/DL (0.50-1.00) Estimat Glomerular Filtration 53 ML/MIN (>89) Rate Calcium Level 8.0 MG/DL (8.5-10.1) Imaging Last 24 hours Impressions Abdomen/Pelvis CT 10/01/16 0800 Signed Impressions: Service Date/Time: September 08:23 - CONCLUSION: 1. Placement of a right-sided percutaneous nephrostomy tube with slight improvement of right-sided hydronephrosis. 2. Staghorn calculus on the right with dilatation of the right renal pelvis and right proximal ureter which does contain some high density material. 3. Right sided nephroureteral stent in position. 4. Small amount of pelvic free fluid. 5. Bibasilar patchy densities Jose Foy MD Hospital Course Right PCNL yesterday, doing well post-op. Patient tolerating regular diet, pain well controlled. Nephrostomy tube removed today. Discharge home today with antibiotics and pain medication Pt Condition on Discharge: Good Discharge Disposition: Discharge Home Discharge Instructions DIET: Follow Instructions for: As Tolerated, No Restrictions Activities you can perform: Regular-No Restrictions, Shower Only-No Bath Activities to avoid: Driving for 24 hrs Tony Marie MD Oct 01, 2016 18:47
[2016-10-01] MEDS ORDERED: MAGNESIUM HYDROXIDE SUSP 30 ML CUP PO SCH (21:00)
[2016-10-02] MEDS ORDERED: INFLUENZA VIRUS VACCINE (QUADRIVALENT) 0.5 ML SYR IM ONE (10:00)
[2016-10-02] MEDS ORDERED: PNEUMOCOCCAL POLYVALENT INJ 25 MCG/0.5 ML SYR IM ONE (10:00)
--- NOTE | 2016-10-03 09:27 | MP ---
cc: MELANIE MCCLAIN MD DATE OF SURGERY 09/30/2016 PREOPERATIVE DIAGNOSIS Right-sided staghorn calculus. POSTOPERATIVE DIAGNOSIS Right-sided staghorn calculus. SURGEON Conor Mcclain MD PROCEDURE PERFORMED 1. Right percutaneous nephrolithotripsy. 2. Right ureteral stent placement, 6 x 24. PERTINENT FINDINGS 1. Large staghorn calculus noted in the renal pelvis extending to the lower pole as well as upper pole calices. Greater than 2-3 cm of stone noted. 2. Successful removal of all stones in the renal pelvis and a portion of the upper pole calyx. Access to the lower pole calyx was not possible given the access point. Unable to reach even with flexible cystoscopy. 3. Successful placement of a 6 x 24 double-J ureteral stent. HISTORY OF PRESENT ILLNESS Francesca Arguello is a 46-year-old female found to have a large staghorn calculus in the right kidney. The calculus extended the entire of the right renal pelvis and to the upper and lower pole calyces. She presents today for definitive treatment of her stone burden via right percutaneous nephrolithotripsy. OPERATIVE PROCEDURE After proper fully informed consent was obtained, the patient was brought to the operating room and remained supine on the operating room table. The bilateral lower extremities had SCDs placed. The patient was then placed under general anesthesia. A 16-Amharic urethral catheter was successfully placed. At this point the patient was then placed in the prone position insuring all pressure points were padded properly. After this the patient was then prepped and draped in standard sterile fashion. After proper time-out was completed, the right nephrostomy tube site was identified with contrast administered to identify the right collecting system. The wire was then placed through the access and guided to the bladder and confirmed position with view by fluoroscopy. The indwelling nephroureteral tube was then removed. Incision was then made with an 11 blade at the skin level. Following this, a dual-lumen catheter was then placed into the proximal right ureter and a second Super-Stiff wire was then placed. At this point a safety wire was placed alongside and, using the working wire the NephroMax balloon dilator was then used to dilate the access up to 30-Amharic. After adequate dilation, the sheath was guided carefully over the balloon into the right kidney which appeared to be the right posterior lower pole calyx. At this point, after adequate access, the balloon was removed and the nephroscope was then carefully guided. Near the point of entry was noted a large stone burden. The CyberWand was then used to fragment all the stones and remove them via suction. This was carried out from the access point down to the UPJ. This was then carried up superiorly towards the upper pole of the calyx. After all visible stone was removed using the nephroscope, the flexible cystoscope was then inserted. This was used to guide into each calyx. However, the anterior lower pole calyx which harbored a large stone was unable to be accessed. Access into one of the upper pole calyxes was successful and removed via basket extraction. The remainder of all the calyces were completed with no other stone burden identified. There was an upper pole calyx that appeared to have stone on fluoroscopy, unable to be evaluated with the cystoscope. At this point, as the visualization became quite poor and there was no further obvious stone noted or reachable, it was decided to place an indwelling ureteral stent for potential future access via ureteroscopy if needed. Therefore a 6 x 25 double-J ureteral stent was then successfully placed into the right collecting system with good curl in the renal pelvis as well as in the bladder. Following this, the nephrostomy tube with 20-Amharic Councill catheter was successfully placed into the right renal pelvis, the balloon inflated to 2-3 cc. At this point the sheath was removed and the nephrostomy tube secured to the skin using silk suture. Pressure dressing was then applied. The patient was then returned to the supine position. The patient was extubated and taken to PACU in stable condition. The patient tolerated the procedure well. No complications. DISPOSITION The patient is to be admitted with plans for a CT scan the following morning. Based on these results, we will plan to have her urethral catheter removed, followed by her nephrostomy tube. Melanie Mcclain M.D. SML/SSB /5:15 PM /9:07 AM
== END 2016-10-01 20:25 | disposition home or self-care (01) | DRG 661 ==
LOC: HSDC 06:53 → HRIP 07:10 → HSDC 17:51 → HOCB 10-01 01:02
PROVIDERS: ADMIT Urology; ATTEND Urology
PROC: 0TC08ZZ Extirpation of Matter from Right Kidney, Via Natural or Artificial Opening Endoscopic (ICD-10-PCS; 2016-09-30)
PROC: 0T768DZ Dilation of Right Ureter with Intraluminal Device, Via Natural or Artificial Opening Endoscopic (ICD-10-PCS; 2016-09-30)
PROC: 0T9030Z Drainage of Right Kidney with Drainage Device, Percutaneous Approach (ICD-10-PCS; 2016-09-30)
PROC: 0TF33ZZ Fragmentation in Right Kidney Pelvis, Percutaneous Approach (ICD-10-PCS; principal; 2016-09-30 15:13)
DX: N20.0 Calculus of kidney (principal); N13.9 Obstructive and reflux uropathy, unspecified
CPT/HCPCS: 50434; 74000; 74176; 76000; 80048; 82370; 85027; 86850; 86900; 86901; 88300; 99152; 99153; C1726; C1769; C1877; C1887; C2617; J0690; J1956; J2250; J2270; J2405; J2550; J3010; J7030; J7120; Q9967

== ENCOUNTER 2017-01-13 06:53 | Observation (INO) | payer OTHER ==
[~2017-01-13] VITALS: Ht 165.1 cm; Wt 93.0 kg
[2017-01-13] VITALS (8 sets, daily range): BP systolic 127–150; BP diastolic 60–100; PULSE 56–89; RESP 16–20; TEMP 96.5–98.5; O2SAT 92–99
[~2017-01-13 06:53] MED LIST: CIPR-9 PO; OXYB5TAB10 PO; PERC5TAB12 PO
[2017-01-13] MEDS: SODIUM CHLORIDE 0.9% 1000 ML IV SCH ×2 (08:05→18:30)
[2017-01-13 08:10] LABS: APTT (PATIENT) 26.2 SEC (24.3-30.1); PROTHROMBIN TIME - PATIENT 10.6 SEC (9.8-11.6)
[2017-01-13] MEDS ORDERED: LEVOFLOXACIN 500 MG PREMIX 100 ML - nephrostomy tube insertion or exchange IV SCH (08:15)
[2017-01-13] MEDS ORDERED: FERR1TAB36 PO (09:08)
[2017-01-13] MEDS ORDERED: fentaNYL CITRATE 250 MCG/5 ML AMP ONE ×3 (09:13→13:05)
[2017-01-13] MEDS ORDERED: MIDAZOLAM HCL 5 MG/5 ML VIAL ONE ×2 (09:13→10:17)
[2017-01-13] MEDS ORDERED: diphenhydrAMINE HCL 50 MG/ML VIAL ONE (09:49)
--- NOTE | 2017-01-13 10:49 | PD.RAD ---
Post Procedure Progress Note Pre Procedure Diagnosis: (1) Renal stone Post Procedure Diagnosis: (1) Renal stone Procedure Date: January 13, 2017 Supervising Radiologist: Saurabh Jordan JR Proceduralist/Assist: Soco Terry RT(R), Natalya Victor RT(R)() Anesthesia: Conscious Sedation Plan of Activity Patient to Unit: ROPU Patient Condition: Good See PACS Report for procedural detail/treatment Drainage Procedure Procedure 1 Imaging Guidance: Fluoroscopy, Ultrasound Side: Right Procedure Type: Nephrostomy, Ureteral Stent Procedure: Placement Citizen Of [place]: 4 Findings: Lower pole access requested. Multiple stones including large lower pole stone. Placed lower pole access with catheter down to urinary bladder. Catheter will accept up to 0.038 wire. Plan To OR Jr. Julian,Saurabh Partida MD January 13, 2017 10:49
[2017-01-13] MEDS ORDERED: IOHEXOL 350 MG/ML 50 ML BTL (for RAD DIAG) ONE (11:12)
[2017-01-13] MEDS ORDERED: NEOSTIGMINE 3 MG/3 ML SYR IV ONE (12:00)
[2017-01-13] MEDS ORDERED: ONDANSETRON HCL 4 MG/2 ML VIAL IV PUSH ONE (12:00)
[2017-01-13] MEDS ORDERED: LACTATED RINGER'S 1000 ML INJ 1,000 ML IV ONE (12:00)
[2017-01-13] MEDS ORDERED: PROPOFOL 200 MG/20 ML AMP IV ONE (12:00)
[2017-01-13] MEDS ORDERED: VERAPAMIL HCL 5 MG/2 ML VIAL ONE (12:28)
[2017-01-13] MEDS ORDERED: HEPARIN SODIUM - IV 10,000 UNITS/10 ML VIAL ONE (12:57)
[2017-01-13] MEDS ORDERED: ACETAMINOPHEN 1000 MG/100 ML VIAL IV ONE (13:05)
[2017-01-13] MEDS ORDERED: MIDAZOLAM HCL 2 MG/2 ML VIAL ONE (13:05)
[2017-01-13] MEDS ORDERED: DEXAMETHASONE SOD PHOS 4 MG/ML VIAL ONE (13:05)
[2017-01-13] MEDS ORDERED: FAMOTIDINE 20 MG/2 ML VIAL ONE (13:05)
--- NOTE | 2017-01-13 13:06 | RADRPT ---
EXAM DATE/TIME: 01/13/2017 10:10 [facility] COMPARISON: No previous studies available for comparison. INDICATIONS : Patient is in need of placement of a right nephroureteral catheter for access prior to surgery. Lower pole access requested. MEDICAL HISTORY : History of renal calculi, anemia. SURGICAL HISTORY : History of right nephrostomy tube and ureteral stent placement. ENCOUNTER: Subsequent ACUITY: 1 month PAIN SCORE: 0/10 FLUORO TIME: 24.1 minutes IMAGE SERIES: 13 SEDATION TIME: 75 minutes CONTRAST: 60 cc Omnipaque (iohexol) 350 MEDICATION(S): 1.) 50 mg diphenhydramine IV 2.) 8 mg midazolam (Versed) IV 3.) 400 mcg fentanyl (Sublimaze) IV Vancomycin within 2 hours of procedure, Ancef (or alternative) within 1 hour of procedure. DEVICE(S): 1.) 4Fr/65cm Straight Glidecath nephroureteral stent PROCEDURE : 1. Ultrasound-guided puncture of the kidney. 2. Antegrade percutaneous pyelogram. 3. Percutaneous nephroureteral stent placement. 4. Conscious sedation with continuous EKG and oximetry monitoring. The risks, benefits and alternatives to the procedure were explained and verbal and written consent w as obtained. The site was prepped in sterile fashion. Full sterile technique was used, including ca p, mask, sterile gloves and gown and a large sterile sheet. Hand hygiene and 2% chlorhexidine and/or betadine/alcohol prep was utilized per protocol for cutaneous antisepsis. The skin and subcutaneous tissues were infiltrated with local anesthetic solution. With ultrasound and fluoroscopic guidance the right kidney was punctured utilizing a lower pole acces s and a percutaneous antegrade pyelogram was performed. This shows renal calculi with the largest inv olving the lower pole. Multiple attempts were made at gaining access around the lower pole stone and through the infundibulum with the initial access. These were unsuccessful. A second access involving the lower pole was performed with a different angle and this allowed passage around the stone and thr ough the infundibulum. The patient has an existing ureteral stent and therefore an 8 Slovak nephroure teral catheter was not felt prudent. A 4 Slovak straight glide catheter was passed via the lower pole access, down the ureter, and into the urinary bladder. This was sutured in place using 2-0 silk sutu re. Injection of positive contrast demonstrates good position of the catheter. - Conscious sedation was performed with the prescribed dosages and duration as above in the presence of an independent trained radiology nurse to assist in the monitoring of the patient. EKG and oximetry remained stable throughout the procedure. The patient tolerated the procedure well and there were n o complications. The patient was sent to post anesthesia recovery in stable condition. CONCLUSION: Uncomplicated nephroureteral catheter placement via a lower pole access on the right. Mild pleural re nal calculi observed with the largest involving the lower pole. The catheter placed is a 4 Slovak gli de catheter and can except up to a 0.038 wire. Saurabh Jordan Jr., MD on January 13, 2017 at 12:57 Board Certified Radiologist. This report was verified electronically.
[2017-01-13] MEDS ORDERED: ceFAZolin 2 GM PREMIX 50 ML ONE (13:16)
[2017-01-13] MEDS ORDERED: IOHEXOL 300 MG/ML 100 ML BTL (for Rad CT) OTHER ONE (14:14)
[2017-01-13] MEDS ORDERED: oxyCODONE/ACETAMINOPHEN 5 MG/325 MG TAB PO PRN (17:15)
[2017-01-13] MEDS ORDERED: HYDROmorphone HCL PF 2 MG/ML VIAL IV PRN (17:15)
[2017-01-13] MEDS ORDERED: HYDROmorphone HCL PF 1 MG/ML VIAL IV PRN (17:15)
[2017-01-13] MEDS ORDERED: Post-op Orders (for Pharmacy) MISC XX ONE (17:15)
[2017-01-13] MEDS ORDERED: SODIUM CHLORIDE 0.9% FLUSH 10 ML FLUSH IV FLUSH PRN (17:15)
[2017-01-13] MEDS ORDERED: ONDANSETRON HCL 4 MG/2 ML VIAL IV PRN (17:15)
[2017-01-13] MEDS ORDERED: DO NOT ADM ANY ANTICOAGULANT DRUGS PRN (17:19)
[2017-01-13] MEDS ORDERED: MORPHINE SULFATE 4 MG/ML INJ ONE (17:27)
[2017-01-13] MEDS: OXYBUTYNIN CHLORIDE 5 MG TAB PO SCH (20:36)
[2017-01-13] MEDS: SODIUM CHLORIDE 0.9% FLUSH 10 ML FLUSH IV FLUSH SCH (20:40)
[2017-01-14] MEDS: oxyCODONE/ACETAMINOPHEN 5 MG/325 MG TAB PO PRN ×4 (01:15→18:32)
[2017-01-14 04:32] VITALS: BP 118/57; PULSE 80; RESP 20; TEMP 99; O2SAT 98
[2017-01-14 06:47] LABS: MEAN CELL VOLUME 85.1 FL (80.0-100.0); MEAN CORPUSCULAR HEMOGLOBIN 27.9 PG (27.0-34.0); MEAN CORPUSCULAR HGB CONC 32.9 % (32.0-36.0); PLATELET COUNT 262 TH/MM3 (150-450); RED BLOOD COUNT 3.64 MIL/MM3 (4.00-5.30); REVIEW FLAG FINAL; WHITE BLOOD COUNT 11.4 TH/MM3 (4.0-11.0)
[2017-01-14 07:16] LABS: BICARBONATE 24.7 MEQ/L (21.0-32.0); POTASSIUM 3.9 MEQ/L (3.5-5.1)
[2017-01-14] MEDS: SODIUM CHLORIDE 0.9% FLUSH 10 ML FLUSH IV FLUSH SCH ×2 (07:57→20:15)
[2017-01-14] MEDS: OXYBUTYNIN CHLORIDE 5 MG TAB PO SCH ×3 (07:58→16:24)
[2017-01-14 08:00] VITALS: BP 129/63; PULSE 73; RESP 18; TEMP 97.9; O2SAT 96
--- NOTE | 2017-01-14 09:17 | MP ---
cc: MELANIE MCCLAIN MD DATE OF SURGERY January 13, 2017 PREOPERATIVE DIAGNOSIS Right nephrolithiasis. POSTOPERATIVE DIAGNOSIS Right nephrolithiasis. SURGEON Melanie Mcclain MD PROCEDURE PERFORMED Right percutaneous nephrolithotripsy. PERTINENT FINDINGS 1. Stone burden noted in the lower pole of the renal pelvis measuring approximately 2 cm. 2. Indwelling ureteral stent unable to be removed. It appeared to be stuck. HISTORY OF PRESENT ILLNESS Francesca Thakkar is a 46-year-old female who has right-sided nephrolithiasis, underlying PCNL with a right indwelling stent placed. The stent was unable to be removed from below and there remained stone burden on the right, therefore she presented today for treatment with right PCNL. PROCEDURE IN DETAIL After proper informed consent was obtained, the patient was brought to the operating room and remained supine on the operating room table. The patient underwent general anesthesia. The patient was then had a Graves catheter placed. At this point the patient was placed in the prone position ensuring all pressure points were properly padded. At this point the patient was prepped and draped in standard surgical fashion. After a proper time-out was completed, the right nephrostomy tube was identified. A wire was guided through the nephrostomy tube and positioned via fluoroscopy. At this point the tube was removed and a second wire was placed using a dual-lumen catheter. Following this, incision was made in the skin for a nephrostomy tube tract. At this point a 30-Mauritanian balloon was used to created the tract. After proper dilation, the sheath was successfully placed and a nephroscope was inserted. The nephroscope identified immediately a large stone burden noted in the lower pole of the right renal calyx. After the stone was completely fragmented and removed using the CyberWand. At this point, after adequate fragmentation and removal of all stone fragments, the stent was attempted to be identified. This proved to be very difficult as the anatomy was very strange. The lower pole calyx was investigated completed with no other stone burden. The scope was advanced all the way up into the upper pole renal calyx with no stent encountered, although it was visible on the fluoroscopy. The upper pole stones were then removed using basket extraction. However, no stent was identified. The flexible cystoscope was then inserted and complete identification of the entire renal pelvis and calyces were completed without identification of the stent. Following this the flexible ureteroscope was then placed over a wire into the proximal ureter and the stent was identified in the ureter. This was attempted to be passed using the ureteroscopic biopsy forceps. However, this was unsuccessful. The stent was then carefully followed into the renal pelvis which appeared to be falling into a very tight infundibulum. Again multiple times in grasping the stent and removing it was unsuccessful. Multiple different kinds of grasping devices were used, all of which were unsuccessful to be grabbing the stent adequately to remove it. The stent was unable to be removed after several attempts. There were a couple of good well-grasped stents and this was tried to be brought up, however, this was met with significant resistance and the grasper gave way and the stent remained. Therefore, given to the amount of time and trauma to the kidney, it was decided to leave the stent in place for now and place a nephrostomy tube with an open-ended catheter in place. After placing this, the sheath was removed. The patient was then awoken from anesthesia and taken to the PACU in good and stable condition. DISPOSITION The patient is to be overnight observation. Regarding her stent, we will attempt another cystoscopy with attempting removal of the stent from below. This will likely have to be done by incising the distal ureter as the stent was not visible on prior cystoscopy from the bladder. Melanie Mcclain M.D. SML/SSB /5:06 PM /8:43 AM MARYAM
[2017-01-14 12:00] VITALS: BP_SYST 124; BP_SYST 143; BP_DIAS 58; BP_DIAS 61; PULSE 76; PULSE 93; RESP 16; RESP 20; TEMP 97.8; TEMP 97.9; O2SAT 95; O2SAT 98
[2017-01-14] MEDS ORDERED: OXYC1TAB63 PO (14:53)
[2017-01-14] MEDS ORDERED: CIPR-9 PO (14:53)
--- NOTE | 2017-01-14 14:56 | HHI.DS ---
Discharge Summary Admission Date 01/13/17 Discharge Date: January 15, 2017 Admitting Diagnosis CBC/BMP: 01/14/17 0618 01/14/17 0618 Significant Findings Laboratory Tests Test 01/14/17 06:18 White Blood Count 11.4 TH/MM3 (4.0-11.0) Red Blood Count 3.64 MIL/MM3 (4.00-5.30) Hemoglobin 10.2 GM/DL (11.6-15.3) Hematocrit 31.0 % (35.0-46.0) Red Cell Distribution Width 20.0 % (11.6-17.2) Creatinine 1.01 MG/DL (0.50-1.00) Estimat Glomerular Filtration 59 ML/MIN (>89) Rate Calcium Level 8.1 MG/DL (8.5-10.1) Hospital Course PCNL on the right on 01/13/17. Patient did well post-operatively, requiring some pain medication. Plan discharge on POD#2 with follow-up to remove indwelling ureteral stent Pt Condition on Discharge: Good Discharge Disposition: Discharge Home Discharge Instructions DIET: Follow Instructions for: As Tolerated, No Restrictions Speech Therapy-Diet Recommenda: Regular Activities you can perform: Regular-No Restrictions New Medications: Ciprofloxacin (Cipro) 500 Mg Tab 500 MG PO BID Infection #6 Ref 0 TAB Oxycodone-Acetaminophen (Oxycodone-Acetaminophen) 5-325 mg Tab 2 TAB PO Q6HR PRN pain #40 Ref 0 TAB Continued Medications: Ferrous Sulfate (Iron) 325 Mg Tab Unknown Dose PO DAILY Take Nutritional Supplement Ref 0 TAB Tony Marie MD January 14, 2017 14:56
--- NOTE | 2017-01-14 14:58 | HHI.PR ---
Subjective Patient symptoms today POD#1 Right PCNL No issues overnight. medeiros removed, voiding well. Pain controlled Objective Vital Signs Vital Signs Date Time Temp Pulse Resp B/P Pulse Ox O2 Delivery O2 Flow Rate FiO2 01/14/17 12:00 97.9 76 16 124/61 98 01/14/17 08:00 97.9 73 18 129/63 96 01/14/17 04:32 99.0 80 20 118/57 98 01/14/17 02:33 18 01/13/17 23:53 96.5 80 16 132/82 96 01/13/17 23:21 18 01/13/17 20:40 Room Air 01/13/17 20:00 96.8 89 16 127/60 96 01/13/17 19:50 92 21 01/13/17 18:30 98.7 69 16 158/83 100 Room Air 01/13/17 18:15 69 16 158/83 100 Room Air 01/13/17 18:00 67 16 160/80 100 Nasal Cannula 2 01/13/17 17:45 72 16 136/72 100 Nasal Cannula 2 01/13/17 17:30 68 16 150/87 100 Nasal Cannula 2 01/13/17 17:19 98.0 67 16 103/83 95 Nasal Cannula 2 Intake & Output 01/14/17 01/14/17 07:00 19:00 Intake Total 1000 ml 133 ml Output Total 1900 ml 150 ml Balance -900 ml -17 ml Intake Oral 720 ml IV Total 280 ml 133 ml Output Urine Total 1700 ml Drainage Total 200 ml 150 ml Result Diagram: 01/14/1718 01/14/1718 Objective Remarks AAOx3 Resp NL Ab S/NT/ND Right nephrostomy tube in place, some drainage noted. Medications and IVs Current Medications Medications (Trade) Dose Ordered Sig/Pearl Route Start Time Stop Time Status Last Admin (NS 1000 ml Inj) 1,000 ml @ 30 mls/hr Q24H IV 01/13/17 08:15 01/16/17 08:14 01/13/17 18:30 (NS Flush) 2 ml UNSCH PRN IV FLUSH 01/13/17 17:15 (NS Flush) 2 ml BID IV FLUSH 01/13/17 21:00 01/13/17 20:40 (Percocet 5-325 Mg) 1 tab Q4H PRN PO 01/13/17 17:15 (Percocet 5-325 Mg) 2 tab Q4H PRN PO 01/13/17 17:15 01/14/17 11:06 (Dilaudid Pf Inj) 1 mg Q2H PRN IV 01/13/17 17:15 01/13/17 20:39 (Dilaudid Pf Inj) 1 mg Q2H PRN IV 01/13/17 17:15 (Ditropan) 5 mg TID PO 01/13/17 18:00 01/14/17 11:06 (Zofran Inj) 4 mg Q6H PRN IV 01/13/17 17:15 01/13/17 20:48 (Heparin Inj) 5,000 units Q12H SQ 01/14/17 16:00 Future hold Miscellaneous Information ALL NURSING DEPARTME... UNSCH PRN .XX 01/13/17 17:19 01/14/17 17:18 Assessment and Plan Problem List: (1) Obstructive uropathy ICD Code: N13.9 Status: Acute (2) Renal stone ICD Code: N20.0 Status: Acute Assessment and Plan POD#1 Right PCNL -Reg diet -Continue pain control -Right nephrostomy tube removed today -Discharge home tomorrow with Urology followup for stent removal Tony Marie MD January 14, 2017 14:58
[2017-01-14 16:00] VITALS: BP 115/65; PULSE 67; RESP 18; TEMP 98; O2SAT 99
[2017-01-14] MEDS ORDERED: HEPARIN SODIUM - SQ 10,000 UNITS/ML VIAL SQ SCH (16:00)
[2017-01-14 20:00] VITALS: BP 106/64; PULSE 88; RESP 18; TEMP 97.2; O2SAT 97
[2017-01-14 23:51] VITALS: BP 117/56; PULSE 79; RESP 20; TEMP 97.1; O2SAT 97
[2017-01-15] MEDS: oxyCODONE/ACETAMINOPHEN 5 MG/325 MG TAB PO PRN ×3 (01:16→12:03)
[2017-01-15 06:00] LABS: HEMATOCRIT 30.1 % (35.0-46.0); MEAN CELL VOLUME 86.8 FL (80.0-100.0); MEAN CORPUSCULAR HEMOGLOBIN 27.8 PG (27.0-34.0); PLATELET COUNT 234 TH/MM3 (150-450); RED BLOOD COUNT 3.46 MIL/MM3 (4.00-5.30); RED CELL DISTRIBUTION WIDTH 19.9 % (11.6-17.2); REVIEW FLAG FINAL; WHITE BLOOD COUNT 6.3 TH/MM3 (4.0-11.0)
[2017-01-15 06:27] LABS: BICARBONATE 28.1 MEQ/L (21.0-32.0); POTASSIUM 3.6 MEQ/L (3.5-5.1)
[2017-01-15] MEDS: OXYBUTYNIN CHLORIDE 5 MG TAB PO SCH ×2 (07:06→12:02)
[2017-01-15] MEDS: SODIUM CHLORIDE 0.9% FLUSH 10 ML FLUSH IV FLUSH SCH (07:07)
[2017-01-15] MEDS: SODIUM CHLORIDE 0.9% 1000 ML IV SCH (07:07)
[2017-01-15 08:00] VITALS: BP 120/66; PULSE 67; RESP 18; TEMP 97; O2SAT 98
[2017-01-15 12:00] VITALS: BP 122/69; PULSE 76; RESP 16; TEMP 98.3; O2SAT 97
== END 2017-01-15 15:48 | disposition home or self-care (01) ==
LOC: HROP 06:53 → HRIP 06:54 → N07A 19:08 → HROP 19:09
PROVIDERS: ADMIT Urology; ATTEND Urology
DX: N20.0 Calculus of kidney (principal); N13.9 Obstructive and reflux uropathy, unspecified
CPT/HCPCS: 00862; 50080; 50433; 76000; 80048; 85027; 85610; 85730; 86850; 86900; 86901; 99152; 99153; C1726; C1769; C1887; C1894; G0378; J0131; J0690; J1100; J1170; J1200; J1644; J1956; J2250; J2270; J2405; J2710; J3010; J7030; J7120; Q9967